=== PATIENT | female | born 1950 | race Caucasian/White ===

== ENCOUNTER 2016-08-16 06:36 | Day surgery (SDC) | payer MEDICARE, BC ==
[2016-08-16] MEDS ORDERED: Sodium Chloride 0.9% 1,000 ML IV SCH (07:30)
[2016-08-16] MEDS ORDERED: fentaNYL 100 MCG/2 ML SDV ONE (07:41)
[2016-08-16] MEDS ORDERED: Propofol 200 MG/20 ML SDV ONE (07:41)
[2016-08-16] MEDS ORDERED: Midazolam 1 MG/ML 2 ML SDV ONE (07:42)
[2016-08-16] MEDS ORDERED: Ondansetron 4 MG/2 ML SDV ONE (07:42)
[2016-08-16 10:43] VITALS: BP 139/76
--- NOTE | 2016-08-19 09:24 | OR ---
DATE OF PROCEDURE: 08/16/2016 PROCEDURE: Colonoscopy. FINDINGS: Descending colon polyp, 5 mm, completely removed using cold biopsy forceps. COMPLICATIONS: None. PASSENGER TIRE INSPECTOR: None. ANESTHESIA: MAC. PREOPERATIVE DIAGNOSIS: Screening colonoscopy. POSTOPERATIVE DIAGNOSIS: Screening colonoscopy. PROCEDURE IN DETAIL: The patient placed in left lateral decubitus position. Digital rectal exam was performed without abnormality. The scope was introduced and advanced atraumatically to the ileocecal valve. The scope was brought back to the ascending, transverse, descending colon, and retroflexed. A 5 mm polyp was identified and completely removed using cold biopsy forceps. No other abnormalities. No old or new blood. No masses. The patient had three diverticula. The patient tolerated the procedure well. Tej Wu MD /[id number]
== END 2016-08-16 10:40 | disposition home or self-care (01) ==
LOC: JP.SDS 06:36
PROVIDERS: ATTEND Surgery
DX: Z12.11 Encounter for screening for malignant neoplasm of colon (principal); K63.5 Polyp of colon; I10 Essential (primary) hypertension; E78.5 Hyperlipidemia, unspecified
CPT/HCPCS: 45380; J2250; J2405; J2704; J3010; J7040; 88305

== ENCOUNTER → 2018-12-09 | Outpatient (CLI) | payer MEDICARE, BC ==
--- NOTE | 2018-12-09 11:50 | CRLMY ---
INDICATION: bilateral screening mammogram asymptomatic 68 year old been obtained using full-field digital technique. These mammographic images were interpreted with the benefit of computer-aided detection. COMPARISON FILM: 10/07/17(L), 09/30/17, 11/17/14, (L), 11/12/13. FINDINGS: There are scattered fibroglandular densities. There are no masses or calcifications that are suspicious for malignancy. IMPRESSION: There is no radiographic evidence for malignancy. ASSESSMENT: BI-RADS Category 1: Negative RECOMMENDATION: Routine screening mammogram in 1 year. A lay language report of this examination will be provided to the patient. Breast Tomosynthesis was used in this interpretation. [email or web address] Dictated by: Jimmy Acevedo MD @ 12/09/2018 11:49:58 (Electronically Signed)
== END ==
LOC: JP.MAM 07:23
PROVIDERS: ATTEND Family Medicine
DX: Z12.31 Encounter for screening mammogram for malignant neoplasm of breast (principal)
CPT/HCPCS: 77063; 77067

== ENCOUNTER 2022-10-10 06:29 | Day surgery (SDC) | payer MEDICARE, BC ==
[2022-10-10] MEDS ORDERED: Sodium Chloride 0.9% 1,000 ML IV SCH (07:00)
[2022-10-10] MEDS ORDERED: Propofol 200 MG/20 ML SDV ONE (07:22)
[2022-10-10 09:04] VITALS: BP 128/69; PULSE 64
== END 2022-10-10 09:14 | disposition home or self-care (01) ==
LOC: JP.SDS 06:29
PROVIDERS: ATTEND Surgery
DX: Z12.11 Encounter for screening for malignant neoplasm of colon (principal); I10 Essential (primary) hypertension; E78.5 Hyperlipidemia, unspecified; I60.9 Nontraumatic subarachnoid hemorrhage, unspecified; Z79.899 Other long term (current) drug therapy; Z86.010 Personal history of colon polyps; Z80.0 Family history of malignant neoplasm of digestive organs
CPT/HCPCS: G0105; J2704; J7030

== ENCOUNTER 2023-09-25 07:18 | Day surgery (SDC) | payer MEDICARE, BC ==
[2023-09-25] MEDS ORDERED: fentaNYL 100 MCG/2 ML SDV ONE (07:20)
[2023-09-25] MEDS ORDERED: Propofol 200 MG/20 ML SDV ONE (07:20)
[2023-09-25] MEDS: Sodium Chloride 0.9% 1,000 ML IV SCH (08:18)
[2023-09-25 11:13] VITALS: PULSE 58
[2023-09-25 11:14] VITALS: BP 131/92
== END 2023-09-25 11:20 | disposition home or self-care (01) ==
LOC: JP.SDS 07:18
PROVIDERS: ATTEND Surgery
DX: R10.13 Epigastric pain (principal); K22.89 Other specified disease of esophagus; I10 Essential (primary) hypertension; E78.5 Hyperlipidemia, unspecified
CPT/HCPCS: 43239; 88305; J2704; J3010; J7030

== ENCOUNTER 2024-01-31 15:31 | Emergency (ER) | payer MEDICARE, BC ==
[2024-01-31 16:11] VITALS: BP 122/70; PULSE 75
== END 2024-01-31 16:46 | disposition home or self-care (01) ==
LOC: JP.ED 15:31
DX: L03.115 Cellulitis of right lower limb (principal); I10 Essential (primary) hypertension; E78.00 Pure hypercholesterolemia, unspecified; Z79.899 Other long term (current) drug therapy; Z90.710 Acquired absence of both cervix and uterus
CPT/HCPCS: 99283